=== PATIENT | male | born 1965 | race Caucasian/White ===

== ENCOUNTER 2022-04-12 08:01 | Outpatient (CLI) | payer OTHER, SELFPAY | END 2022-04-12 08:02 | disposition home or self-care (01) | LOC: OP CLINIC 08:04 | PROVIDERS: PCP Physician Assistant Medical; Visit Provider Internal Medicine | DX: Z12.11 Encounter for screening for malignant neoplasm of colon (principal); K63.5 Polyp of colon; K57.30 Diverticulosis of large intestine without perforation or abscess without bleeding; Z86.010 Personal history of colon polyps | CPT/HCPCS: 45380; 88305; J2250; J3010 ==

== ENCOUNTER 2023-08-30 11:09 | Outpatient (CLI) | payer OTHER, SELFPAY | END 2023-08-30 11:10 | disposition home or self-care (01) | LOC: FRMREF 11:10 | PROVIDERS: PCP Physician Assistant Medical; Visit Provider Family Medicine | DX: R10.30 Lower abdominal pain, unspecified (principal); Z12.5 Encounter for screening for malignant neoplasm of prostate | CPT/HCPCS: 80053; 84153; 87086 ==

== ENCOUNTER 2023-09-25 12:29 | Outpatient (CLI) | payer OTHER, SELFPAY ==
--- NOTE | 2023-09-25 13:00 | CRLHL7_ITS ---
For Patients: As a result of the Century Cures Act, medical imaging exams and procedure reports are released immediately into your electronic medical record. You may view this report before your referring provider. If you have questions, please contact your health care provider. Indication: DIVERTICULOSIS, LOWER ABD PAIN Technique: CT Abdomen/Pelvis W/ 110CC ISOVUE [id number] TF Please note that all CT scans at this facility use dose modulation, iterative reconstruction, and/or weight-based dosing when appropriate to reduce radiation dose to as low as reasonably achievable. Comparison: None Findings: Minimal linear subsegmental scarring is present within the both lung bases. No pleural effusion. Normal liver without intrahepatic mass. The gallbladder is incompletely distended. No calcified gallstones. No biliary obstruction. The spleen is normal. Normal adrenal glands. The kidneys are normal. Normal pancreas. Atherosclerotic change. Bladder is normal. Prostate is not enlarged. Sigmoid diverticulosis is present. Mild inflammation is present adjacent to a diverticulum in the midline of the pelvis, series 2, image 112. The appendix is normal. Ill-defined stranding within the central mesenteric fat along with scattered subcentimeter lymph nodes. 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 Degenerative disc disease L4 through S1. Umbilical hernia containing fat measuring 2.2 cm. Impression: Extensive sigmoid diverticulosis. Mild acute diverticulitis is present. Moderate nonspecific and likely incidental mesenteric panniculitis. Please note that all CT scans at this facility use dose modulation, iterative reconstruction, and/or weight-based dosing when appropriate to reduce radiation dose to as low as reasonably achievable. Dictated by Geovani Ramirez MD @ 09/26/2023 1:28:06 PM (Electronically Signed)
== END 2023-09-25 12:30 | disposition home or self-care (01) ==
LOC: CT 12:31
PROVIDERS: PCP Physician Assistant Medical; Visit Provider Family Medicine
DX: K57.90 Diverticulosis of intestine, part unspecified, without perforation or abscess without bleeding (principal); R10.30 Lower abdominal pain, unspecified; K57.30 Diverticulosis of large intestine without perforation or abscess without bleeding; K65.4 Sclerosing mesenteritis
CPT/HCPCS: 74177; Q9967